=== PATIENT | female | born 1985 | race Caucasian/White ===

== ENCOUNTER 2022-08-17 13:29 | Emergency (ER) | payer BC ==
[~2022-08-17] VITALS: Ht 167.6 cm; Wt 96.4 kg
[2022-08-17 14:04] LABS: BASO # 0.04 K/mm3 (0.02-0.10); EOS # 0.06 K/mm3 (0.04-0.40); EOS % 0.7 % (1.0-5.0); HEMATOCRIT 40.8 % (37.0-47.0); HEMOGLOBIN 13.6 g/dL (12.5-16.0); LYMPH# 2.24 K/mm3 (1.50-4.00); MEAN CELL VOLUME 93 fl (78-100); MEAN CORPUSCULAR HEMOGLOBIN 31 pg (27-31); MEAN CORPUSCULAR HGB CONC 33 g/dL (33-37); MEAN PLATELET VOLUME 10.1 fl (7.4-10.4); MONO # 0.31 K/mm3 (0.20-0.80); NEU # 6.01 K/mm3 (1.40-6.50); PLATELET COUNT 221 K/mm3 (130-400); RED BLOOD COUNT 4.41 M/mm3 (4.10-5.30); RED CELL DISTRIBUTION WIDTH 12.1 % (11.5-14.5); WHITE BLOOD COUNT 8.7 K/mm3 (4.8-10.8)
[2022-08-17] MEDS ORDERED: ZYRTEC10 M3 PO (14:07)
[2022-08-17 14:29] LABS: ALBUMIN 4.5 g/dL (3.5-5.0); POTASSIUM 3.8 mmol/L (3.5-5.1); SODIUM 138 mmol/L (136-145)
[2022-08-17 14:30] LABS: CALCIUM 9.4 mg/dL (8.3-10.5)
[2022-08-17 14:31] LABS: GLUCOSE 95 mg/dL (65-105); TOTAL PROTEIN 7.4 g/dL (6.4-8.3)
[2022-08-17 14:32] LABS: CARBON DIOXIDE 21 mmol/L (22-29)
[2022-08-17 14:33] LABS: TOTAL BILIRUBIN 0.3 mg/dL (0.2-1.2)
[2022-08-17 14:37] LABS: AST-SGOT 22 U/L (5-34)
[2022-08-17 14:38] LABS: ALT/SGPT 15 U/L (0-55)
[2022-08-17 14:47] LABS: TROPONIN-I < 0.030 ng/mL (<0.030)
[2022-08-17 15:33] VITALS: BP 131/93
== END 2022-08-17 15:32 | disposition home or self-care (01) ==
LOC: ED 13:29
PROVIDERS: Physician Assistant
DX: M25.512 Pain in left shoulder (principal); R07.89 Other chest pain; Z82.49 Family history of ischemic heart disease and other diseases of the circulatory system; Z28.310 Unvaccinated for COVID-19
CPT/HCPCS: J1885